=== PATIENT | male | born 2000 | race Asian ===

== ENCOUNTER 2021-03-25 21:34 | Emergency (ER) | payer OTHER ==
[~2021-03-25] VITALS: Ht 177.8 cm; Wt 70.3 kg
[2021-03-25] MEDS ORDERED: MORPHINE SULFATE 4 MG/ML SYR/VIAL IV ONE (22:00)
[2021-03-25] MEDS ORDERED: ONDANSETRON HCL 4 MG/2 ML VIAL IV ONE ×2 (22:00→22:30)
[2021-03-25] MEDS ORDERED: ceFAZolin 1GM/50ML 50 ML IV ONE (22:00)
[2021-03-25] MEDS ORDERED: SODIUM CHLORIDE 0.9% 1,000 ML IV ONE (22:00)
[2021-03-25] MEDS ORDERED: IOHEXOL 350 MG/ML 100ML IJ ONE (22:25)
[2021-03-25] MEDS ORDERED: HYDROmorphone HCL 2 MG/ML VL IV ONE (22:30)
[2021-03-26 00:11] LABS: Hematocrit 44.8 % (41.0-53.0); Hemoglobin 14.7 g/dL (13.5-17.5); Mean Corpuscular Hemoglobin 28.6 pg (28.0-32.0); Mean Corpuscular Hgb Conc. 32.9 g/dL (32.0-36.0); Mean Corpuscular Volume 87.1 fL (80.0-100.0); Red Blood Cells 5.15 10^6/uL (4.5-5.90); Red Cell Distribution Width 13.6 % (11.8-14.3); White Blood Cell 13.2 10^3/uL (4.4-10.8)
[2021-03-26 00:26] LABS: Basophils % (manual) 0 (0.0-2.0); Blast Cells 0; Metamyelocytes % 0; Myelocytes % 0; Promyelocytes % 0; Reactive Lymphocytes 0
[2021-03-26 00:31] LABS: Albumin 3.5 g/dL (3.4-5.0); BUN/Creatinine Ratio 12.9; Calcium 8.2 mg/dL (8.5-10.1)
[2021-03-26 00:32] LABS: INR 1.08 (0.9-1.15)
[2021-03-26 00:34] LABS: Bilirubin, Total 0.6 mg/dL (0.2-1.0); Total Protein 6.4 g/dL (6.4-8.2)
[2021-03-26] MEDS ORDERED: HYDROmorphone HCL 2 MG/ML VL IV ONE ×2 (00:45→03:15)
[2021-03-26 01:08] LABS: Band Neutrophils % (manual) 17; Eosinophils % (manual) 2 (0-7); Lymphocytes % (manual) 12 (10.0-50.0); Monocytes % (manual) 10 (0-12)
[2021-03-26] MEDS ORDERED: D5W 5% IV ONE (01:45)
[2021-03-26] MEDS ORDERED: GENTAMICIN SULFATE IV ONE (01:45)
[2021-03-26 03:25] VITALS: BP 130/76
== END 2021-03-26 03:30 | disposition short-term general hospital (02) ==
LOC: ER 21:39
DX: S81.032A Puncture wound without foreign body, left knee, initial encounter (principal); W34.09XA Accidental discharge from other specified firearms, initial encounter; Y93.89 Activity, other specified; Y92.89 Other specified places as the place of occurrence of the external cause; Y99.8 Other external cause status
CPT/HCPCS: 36415; 73560; 73706; 80053; 85007; 85027; 85610; 96365; 96366; 96375; 96376; 99285; J0690; J1170; J1580; J2405; J7030; J7060; Q9967